=== PATIENT | male | born 1995 ===

== ENCOUNTER 2018-12-20 22:28 | Observation (INO) | payer MEDICAID ==
[2018-12-20] MEDS ORDERED: Sodium Chloride 0.9% 10 ML Syringe FLUSH PRN (22:31)
[2018-12-20] MEDS ORDERED: Sodium Chloride 0.9% 2.5 ML Syringe FLUSH PRN (22:31)
[2018-12-20] MEDS ORDERED: Sodium Chloride 0.9% 1,000 ML IV ONE (22:31)
[2018-12-20] MEDS ORDERED: LORazepam 2 MG/ML SDV ONE (22:31)
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
[2018-12-20 23:00] LABS: CHLORIDE,CL 109 mmol/L (98-107); SODIUM,NA 147 mmol/L (136-148)
[2018-12-20] MEDS ORDERED: MVI, Adult with Vitamin K 10 ML, Thiamine 100 MG, Folic Acid 1 MG in Sodium Chloride 0.... IV ONE ×4 (23:07)
[2018-12-20] MEDS ORDERED: Potassium Chloride Riders 20 MEQ in Premix Bag 1 BAG IV ONE (23:07)
[2018-12-20] MEDS ORDERED: Iopamidol 755 MG/ML 500 ML Multipack Bottle IVPUSH STA (23:08)
[2018-12-20] MEDS ORDERED: LORazepam 2 MG/ML SDV IVPUSH ONE ×2 (23:12→23:34)
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
--- NOTE | 2018-12-20 23:27 | CT ---
INDICATION: Headache TECHNIQUE: CT Head without i.v. contrast. COMPARISON: None FINDINGS: CSF space: The ventricles are normal for age. Brain: No evidence of mass, acute infarction or hemorrhage is seen. No mass-effect or midline shift is seen. The brain parenchyma is otherwise normal in appearance with preservation of the pedro-white matter junction. Calvarium: The visualized paranasal sinuses are well aerated. The mastoid air cells are clear. The visualized orbits are grossly unremarkable. The calvarium is unremarkable in appearance with no fractures identified. IMPRESSION: 1. No evidence of acute infarction, intracranial hemorrhage, or mass-effect seen. Please note that all CT scans at this facility use dose modulation, iterative reconstruction, and/or weight-based dosing when appropriate to reduce radiation dose to as low as reasonably achievable. Dictated by: Sagar Cannon MD @ 12/20/2018 23:26:05 (Electronically Signed)
[2018-12-20] MEDS ORDERED: Sodium Chloride 0.9% 1,000 ML IV SCH (23:45)
[2018-12-20] MEDS ORDERED: Haloperidol Lactate 5 MG/ML SDV ONE (23:51)
[2018-12-20] MEDS ORDERED: Haloperidol Lactate 5 MG/ML SDV IM ONE (23:51)
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
[2018-12-21] MEDS ORDERED: diphenhydrAMINE 50 MG/ML SDV IVPUSH PRN (00:47)
[2018-12-21] MEDS ORDERED: Acetaminophen 325 MG Tab PO PRN (00:47)
[2018-12-21] MEDS ORDERED: Sodium Chloride 0.9% 10 ML SDV IV PRN (00:47)
[2018-12-21] MEDS ORDERED: Sodium Chloride 0.9% 2.5 ML Syringe FLUSH PRN (00:47)
[2018-12-21] MEDS ORDERED: Ondansetron 4 MG/2 ML SDV IVPUSH PRN (00:47)
[2018-12-21] MEDS ORDERED: Sodium Chloride 0.9% 10 ML Syringe FLUSH PRN (00:47)
[2018-12-21] MEDS ORDERED: LORazepam 2 MG/ML SDV IV SCH (01:00)
[2018-12-21] MEDS ORDERED: Lactated Ringers 1,000 ML IV SCH (01:00)
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
== END 2018-12-21 11:50 | disposition home or self-care (01) ==
LOC: MW.ED 22:28 → MW.MS 12-21 00:48
PROVIDERS: ADMIT Surgery; ATTEND Surgery
DX: F10.929 Alcohol use, unspecified with intoxication, unspecified (principal); Y90.8 Blood alcohol level of 240 mg/100 ml or more; T14.90XA Injury, unspecified, initial encounter; R40.4 Transient alteration of awareness
CPT/HCPCS: 36415; 70450; 71260; 72125; 73560; 74177; 80053; 80305; 81003; 82550; 83690; 83735; 85025; 85610; 93005; G0480; J1630; J2060; J3411; J3480; J7040; J7120; Q9967; 96361; 96365; 96372; 96374; 96375; 99291; 99292; G0390